=== PATIENT | female | born 1950 | race Two or more races ===

== ENCOUNTER → 2024-09-08 | Outpatient (CLI) | payer OTHER, MEDICAID, SELFPAY ==
--- NOTE | 2024-09-08 | XR_ITS ---
Examination: PA lateral chest 2 views TECHNIQUE: Upright PA lateral chest 2 views Exam date and time: September 08, 2024 1525 hours INDICATIONS: Positive PPD FINDINGS: Suspicious for 24 mm cavitary lesion right upper lobe Normal heart size No mediastinal lymphadenopathy IMPRESSION: Recommend CT chest without contrast follow-up to exclude 24 mm cavitary lesion right upper lobe
== END | disposition home or self-care (01) ==
PROVIDERS: PCP Nurse Practitioner Family; Referring Provider Nurse Practitioner Family; Visit Provider Nurse Practitioner Family
DX: R76.12 Nonspecific reaction to cell mediated immunity measurement of gamma interferon antigen response without active tuberculosis (principal)
CPT/HCPCS: 71046